=== PATIENT | male | born 1965 ===

== ENCOUNTER 2018-07-19 19:49 | Inpatient (IN) ==
[2018-07-19 20:26] LABS: Basophils # 0.1 10*3/uL (0.0-0.2); Basophils % 1.4 % (0.0-0.8); Eosinophils # 0.2 10*3/uL (0.0-0.87); Eosinophils % 2.4 % (0.00-10.9); Hematocrit 32.2 VOL% (42.0-52.0); Hemoglobin 10.8 GM/DL (14.0-18.0); Immature Granulocytes % 0.5 %; Immature Granulocytes Absolute 0.03 #; Lymphocytes # 1.8 10*3/uL (1.4-4.0); Lymphocytes % 26.9 % (21.2-54.2); Mean Corpuscular HGB Conc 33.5 GM/DL (32-36); Mean Corpuscular Hemoglobin 31 PG (27-34); Mean Corpuscular Volume 93.3 FL (87-102); Monocytes # 0.6 10*3/uL (0.11-0.8); Monocytes % 8.3 % (1.7-12.7); Neutrophils % 60.5 % (38.7-73.9); Platelet Count 190 T/CUMM (130-400); Red Blood Count 3.45 MC/CUMM (3.8-5.5); Red Cell Distribution Width 16.3 % (9.3-17.3); White Blood Count 6.6 T/CUMM (4-12)
[2018-07-19 20:40] LABS: INR 1.1
[2018-07-19 21:00] LABS: Apearance,Urine CLEAR (Clear); Bilirubin,Urine Negative (Negative); Blood, Urine Negative (Negative); Glucose,Urine (UA) >=500 mg/dL (Negative); Ketones,Urine Negative (Negative); Nitrite,Urine Negative (Negative); Protein,Urine Negative; Squamous Epithelial Cell,Urine Occasional /HPF (0-10); Urine Color Colorless (Yellow); Urine Specific Gravity 1.002 (1.001-1.035); Urine Urobilinogen < 2.0 EU/DL (0.2-1.0)
[2018-07-19 21:05] LABS: Albumin 2.4 G/DL (3.4-5.0); Bilirubin,Total 0.4 MG/DL (0.2-1.0); Calcium 7.2 MG/DL (8.5-10.1); Osmolality,Calculated 279.4 MOS/KG (273-304); Potassium 3.7 MMOL/L (3.5-5.1)
[2018-07-19] MEDS ORDERED: traZODone 50 MG TABLET PO PRN (22:23)
[2018-07-19] MEDS ORDERED: DEXTROSE 50% 25 GM/50 ML VIAL IV PRN (22:23)
[2018-07-19] MEDS ORDERED: ACETAMINOPHEN 325 MG TABLET PO PRN (22:23)
[2018-07-19] MEDS ORDERED: GLUCAGON 1 MG VIAL IM PRN (22:23)
[2018-07-19] MEDS ORDERED: ONDANSETRON 4 MG/2 ML VIAL IV PRN (22:23)
[2018-07-19] MEDS ORDERED: LORazepam 2 MG/1 ML VIAL IV PRN (22:37)
[2018-07-20] MEDS: CLINDAMYCIN INJ 600 MG in PREMIX 1 EACH IV SCH ×4 (00:08→23:38)
[2018-07-20] MEDS: SODIUM CHLORIDE 0.9% 1,000 ML IV SCH ×3 (00:09→18:30)
[2018-07-20] MEDS: ENOXAPARIN 40 MG/0.4 ML SYRINGE SUBCUT SCH ×2 (00:09→23:38)
[2018-07-20] MEDS ORDERED: LORazepam 2 MG/1 ML VIAL IV PRN (00:47)
[2018-07-20] MEDS: THIAMINE INJ 100 MG, FOLIC ACID INJ 1 MG, MULTIVITAMIN INJ 10 ML in SODIUM CHLORIDE 0.9... IV SCH (02:00)
[2018-07-20 05:07] LABS: Basophils % 0.8 % (0.0-0.8); Eosinophils # 0.1 10*3/uL (0.0-0.87); Eosinophils % 3.3 % (0.00-10.9); Hematocrit 32.2 VOL% (42.0-52.0); Hemoglobin 10.7 GM/DL (14.0-18.0); Immature Granulocytes % 0.3 %; Immature Granulocytes Absolute 0.01 #; Lymphocytes # 1.4 10*3/uL (1.4-4.0); Lymphocytes % 37.7 % (21.2-54.2); Mean Corpuscular HGB Conc 33.2 GM/DL (32-36); Mean Corpuscular Hemoglobin 31 PG (27-34); Mean Corpuscular Volume 92.3 FL (87-102); Mean Platelet Volume 10.3 FL (9.6-12.0); Monocytes # 0.3 10*3/uL (0.11-0.8); Monocytes % 7.3 % (1.7-12.7); NRBC # 0.02 10*3/uL; Neutrophils # 1.9 10*3/uL (1.4-7.4); Neutrophils % 50.6 % (38.7-73.9); Platelet Count 154 T/CUMM (130-400); Red Blood Count 3.49 MC/CUMM (3.8-5.5); Red Cell Distribution Width 16.5 % (9.3-17.3); White Blood Count 3.7 T/CUMM (4-12)
[2018-07-20 05:33] LABS: Calcium 7.3 MG/DL (8.5-10.1); Potassium 3.7 MMOL/L (3.5-5.1); Risk Ratio 2.58; VLDL CHOLESTEROL 23.8 MG/DL
[2018-07-20] MEDS: INSULIN LISPRO 100 UNIT/ML SUBCUT SCH ×4 (08:14→21:06)
[2018-07-20] MEDS: chlordiazePOXIDE 10 MG CAPSULE PO SCH ×3 (08:58→21:06)
[2018-07-20] MEDS: PANTOPRAZOLE 40 MG TABLET PO SCH (08:58)
[2018-07-21] MEDS: THIAMINE INJ 100 MG, FOLIC ACID INJ 1 MG, MULTIVITAMIN INJ 10 ML in SODIUM CHLORIDE 0.9... IV SCH (01:40)
[2018-07-21] MEDS: CLINDAMYCIN INJ 600 MG in PREMIX 1 EACH IV SCH ×3 (06:30→23:10)
[2018-07-21] MEDS: INSULIN LISPRO 100 UNIT/ML SUBCUT SCH ×4 (07:31→20:59)
[2018-07-21] MEDS: PANTOPRAZOLE 40 MG TABLET PO SCH (08:55)
[2018-07-21] MEDS: chlordiazePOXIDE 10 MG CAPSULE PO SCH ×3 (08:55→20:57)
[2018-07-21] MEDS ORDERED: FUROSEMIDE 40 MG/4 ML VIAL IV SCH (09:00)
[2018-07-21] MEDS: SODIUM CHLORIDE 0.9% 1,000 ML IV SCH ×3 (12:52→23:10)
[2018-07-21] MEDS: MUPIROCIN 2% OINT 22 GM TUBE TOP PRN (17:30)
[2018-07-21] MEDS: SKIN HEALING OINT (AQUAPHOR) 50 GM TUBE TOP PRN (17:30)
[2018-07-21] MEDS: FUROSEMIDE 40 MG/4 ML VIAL IV SCH (17:56)
[2018-07-21] MEDS ORDERED: THIAMINE 100 MG TABLET PO SCH (21:00)
[2018-07-21] MEDS: ENOXAPARIN 40 MG/0.4 ML SYRINGE SUBCUT SCH (23:10)
[2018-07-22] MEDS: SODIUM CHLORIDE 0.9% 1,000 ML IV SCH ×3 (02:29→22:29)
[2018-07-22 04:21] LABS: Basophils % 0.5 % (0.0-0.8); Eosinophils # 0.2 10*3/uL (0.0-0.87); Eosinophils % 2.3 % (0.00-10.9); Hematocrit 31.7 VOL% (42.0-52.0); Immature Granulocytes % 0.8 %; Immature Granulocytes Absolute 0.07 #; Lymphocytes # 1.2 10*3/uL (1.4-4.0); Lymphocytes % 14.8 % (21.2-54.2); Mean Corpuscular HGB Conc 34.7 GM/DL (32-36); Mean Corpuscular Hemoglobin 32 PG (27-34); Mean Corpuscular Volume 91.1 FL (87-102); Mean Platelet Volume 10.5 FL (9.6-12.0); Monocytes # 0.6 10*3/uL (0.11-0.8); Monocytes % 6.7 % (1.7-12.7); Neutrophils # 6.2 10*3/uL (1.4-7.4); Neutrophils % 74.9 % (38.7-73.9); Platelet Count 115 T/CUMM (130-400); Red Blood Count 3.48 MC/CUMM (3.8-5.5); Red Cell Distribution Width 16.6 % (9.3-17.3); White Blood Count 8.3 T/CUMM (4-12)
[2018-07-22 04:41] LABS: Calcium 7.5 MG/DL (8.5-10.1); Osmolality,Calculated 270.8 MOS/KG (273-304)
[2018-07-22 04:56] LABS: Folate 13.1 NG/ML (5.4-24.0); Vitamin B12 458 PG/ML (211-911)
[2018-07-22 05:53] LABS: Sedimentation Rate-Westergren 110 MM/HR (0-20)
[2018-07-22] MEDS: CLINDAMYCIN INJ 600 MG in PREMIX 1 EACH IV SCH ×3 (06:11→22:30)
[2018-07-22] MEDS: INSULIN LISPRO 100 UNIT/ML SUBCUT SCH ×4 (07:26→20:18)
[2018-07-22] MEDS: FUROSEMIDE 40 MG/4 ML VIAL IV SCH (08:38)
[2018-07-22] MEDS: PANTOPRAZOLE 40 MG TABLET PO SCH (08:38)
[2018-07-22] MEDS: chlordiazePOXIDE 10 MG CAPSULE PO SCH ×3 (08:38→20:18)
[2018-07-22] MEDS: MULTIVITAMIN (BEROCCA) TABLET PO SCH (08:38)
[2018-07-22] MEDS: THIAMINE 100 MG TABLET PO SCH (08:38)
[2018-07-22] MEDS: MUPIROCIN 2% OINT 22 GM TUBE TOP PRN (09:00)
[2018-07-22] MEDS: SKIN HEALING OINT (AQUAPHOR) 50 GM TUBE TOP PRN (09:00)
[2018-07-22 10:22] LABS: Hemoglobin A1 (Alkaline) 98.1 % (96.5-98.5); Hemoglobin A2 (Alkaline) 1.9 % (1.5-3.5)
[2018-07-22] MEDS ORDERED: MAGNESIUM SULF RIDER 2 GM in PREMIX 1 EACH IV ONE (10:48)
[2018-07-22] MEDS: POTASSIUM CHLORIDE 20 MEQ TABLET PO PRN ×4 (12:12→20:18)
[2018-07-22] MEDS: ENOXAPARIN 40 MG/0.4 ML SYRINGE SUBCUT SCH (22:29)
[2018-07-23] MEDS: POTASSIUM CHLORIDE 20 MEQ TABLET PO PRN (03:30)
[2018-07-23] MEDS: INSULIN LISPRO 100 UNIT/ML SUBCUT SCH ×4 (06:43→20:38)
[2018-07-23] MEDS: MULTIVITAMIN (BEROCCA) TABLET PO SCH (08:58)
[2018-07-23] MEDS: THIAMINE 100 MG TABLET PO SCH (08:59)
[2018-07-23] MEDS: PANTOPRAZOLE 40 MG TABLET PO SCH (08:59)
[2018-07-23] MEDS: FUROSEMIDE 40 MG/4 ML VIAL IV SCH (08:59)
[2018-07-23] MEDS: chlordiazePOXIDE 10 MG CAPSULE PO SCH ×3 (08:59→20:38)
[2018-07-23] MEDS: SODIUM CHLORIDE 0.9% 1,000 ML IV SCH ×3 (09:22→20:39)
[2018-07-23] MEDS: CLINDAMYCIN INJ 600 MG in PREMIX 1 EACH IV SCH ×3 (10:07→23:11)
[2018-07-23] MEDS: ENOXAPARIN 40 MG/0.4 ML SYRINGE SUBCUT SCH (23:11)
[2018-07-24] MEDS: CLINDAMYCIN INJ 600 MG in PREMIX 1 EACH IV SCH ×2 (06:44→15:14)
[2018-07-24] MEDS: INSULIN LISPRO 100 UNIT/ML SUBCUT SCH ×4 (07:20→21:33)
[2018-07-24] MEDS: SODIUM CHLORIDE 0.9% 1,000 ML IV SCH ×4 (08:14→22:18)
[2018-07-24] MEDS: MULTIVITAMIN (BEROCCA) TABLET PO SCH (11:32)
[2018-07-24] MEDS: FUROSEMIDE 40 MG/4 ML VIAL IV SCH (11:32)
[2018-07-24] MEDS: THIAMINE 100 MG TABLET PO SCH (11:33)
[2018-07-24] MEDS: PANTOPRAZOLE 40 MG TABLET PO SCH (11:33)
[2018-07-24] MEDS: chlordiazePOXIDE 10 MG CAPSULE PO SCH ×3 (11:33→21:32)
[2018-07-24] MEDS: SKIN HEALING OINT (AQUAPHOR) 50 GM TUBE TOP PRN (18:30)
[2018-07-24] MEDS: MUPIROCIN 2% OINT 22 GM TUBE TOP PRN (18:30)
[2018-07-24] MEDS: ENOXAPARIN 40 MG/0.4 ML SYRINGE SUBCUT SCH (21:32)
[2018-07-25] MEDS: CLINDAMYCIN INJ 600 MG in PREMIX 1 EACH IV SCH ×4 (00:42→23:30)
[2018-07-25 05:48] LABS: Basophils % 0.7 % (0.0-0.8); Eosinophils # 0.3 10*3/uL (0.0-0.87); Eosinophils % 6.8 % (0.00-10.9); Hemoglobin 11.1 GM/DL (14.0-18.0); Immature Granulocytes % 0.5 %; Immature Granulocytes Absolute 0.02 #; Lymphocytes # 1.2 10*3/uL (1.4-4.0); Lymphocytes % 27.8 % (21.2-54.2); Mean Corpuscular HGB Conc 33.6 GM/DL (32-36); Mean Corpuscular Hemoglobin 31 PG (27-34); Mean Corpuscular Volume 91.2 FL (87-102); Mean Platelet Volume 10.4 FL (9.6-12.0); Monocytes # 0.5 10*3/uL (0.11-0.8); Neutrophils # 2.3 10*3/uL (1.4-7.4); Neutrophils % 52.2 % (38.7-73.9); Platelet Count 131 T/CUMM (130-400); Red Blood Count 3.62 MC/CUMM (3.8-5.5); Red Cell Distribution Width 16.5 % (9.3-17.3); White Blood Count 4.4 T/CUMM (4-12)
[2018-07-25 06:04] LABS: Calcium 7.7 MG/DL (8.5-10.1); Osmolality,Calculated 272.8 MOS/KG (273-304); Potassium 3.7 MMOL/L (3.5-5.1)
[2018-07-25] MEDS: SODIUM CHLORIDE 0.9% 1,000 ML IV SCH ×2 (09:18→19:25)
[2018-07-25] MEDS: INSULIN LISPRO 100 UNIT/ML SUBCUT SCH ×4 (09:56→20:34)
[2018-07-25] MEDS: chlordiazePOXIDE 10 MG CAPSULE PO SCH ×3 (09:57→20:35)
[2018-07-25] MEDS: MULTIVITAMIN (BEROCCA) TABLET PO SCH (09:57)
[2018-07-25] MEDS: FUROSEMIDE 40 MG/4 ML VIAL IV SCH (09:57)
[2018-07-25] MEDS: THIAMINE 100 MG TABLET PO SCH (09:57)
[2018-07-25] MEDS: PANTOPRAZOLE 40 MG TABLET PO SCH (09:57)
[2018-07-25] MEDS: ENOXAPARIN 40 MG/0.4 ML SYRINGE SUBCUT SCH (23:30)
[2018-07-26] MEDS: SODIUM CHLORIDE 0.9% 1,000 ML IV SCH ×2 (05:31→18:19)
[2018-07-26] MEDS: CLINDAMYCIN INJ 600 MG in PREMIX 1 EACH IV SCH ×2 (06:01→16:20)
[2018-07-26] MEDS: INSULIN LISPRO 100 UNIT/ML SUBCUT SCH ×4 (07:33→21:11)
[2018-07-26] MEDS: MULTIVITAMIN (BEROCCA) TABLET PO SCH (09:40)
[2018-07-26] MEDS: FUROSEMIDE 40 MG/4 ML VIAL IV SCH (09:40)
[2018-07-26] MEDS: THIAMINE 100 MG TABLET PO SCH (09:41)
[2018-07-26] MEDS: chlordiazePOXIDE 10 MG CAPSULE PO SCH ×3 (09:41→21:11)
[2018-07-26] MEDS: PANTOPRAZOLE 40 MG TABLET PO SCH (09:41)
[2018-07-26 15:56] VITALS: BP 159/74
== END 2018-07-26 18:19 | disposition home or self-care (01) | DRG 603 ==
LOC: EDUNIT# → EDBD → N.ED 19:49 → SUATTDRO 22:23 → N.EDINP 22:23 → N.3E 23:00
PROVIDERS: ADMIT Internal Medicine; ATTEND Hospitalist

== ENCOUNTER 2018-07-29 22:24 | Observation (INO) ==
[2018-07-30 00:12] LABS: Basophils # 0.1 10*3/uL (0.0-0.2); Basophils % 0.9 % (0.0-0.8); Eosinophils # 0.4 10*3/uL (0.0-0.87); Eosinophils % 5.4 % (0.00-10.9); Hematocrit 33.7 VOL% (42.0-52.0); Hemoglobin 11.3 GM/DL (14.0-18.0); Immature Granulocytes % 0.5 %; Immature Granulocytes Absolute 0.03 #; Lymphocytes # 2.5 10*3/uL (1.4-4.0); Lymphocytes % 38.1 % (21.2-54.2); Mean Corpuscular HGB Conc 33.5 GM/DL (32-36); Mean Corpuscular Hemoglobin 31 PG (27-34); Mean Corpuscular Volume 93.4 FL (87-102); Mean Platelet Volume 10.3 FL (9.6-12.0); Monocytes # 0.7 10*3/uL (0.11-0.8); Monocytes % 10.4 % (1.7-12.7); Neutrophils # 2.9 10*3/uL (1.4-7.4); Neutrophils % 44.7 % (38.7-73.9); Platelet Count 153 T/CUMM (130-400); Red Blood Count 3.61 MC/CUMM (3.8-5.5); Red Cell Distribution Width 16.4 % (9.3-17.3); White Blood Count 6.5 T/CUMM (4-12)
[2018-07-30 00:38] LABS: Alanine Aminotransferase 55 U/L (16-61); Albumin 2.5 G/DL (3.4-5.0); Alkaline Phosphatase 140 U/L (45-117); Aspartate Amino Transferase 74 U/L (0-37); Blood Urea Nitrogen 10 MG/DL (7-18); Calcium 7.8 MG/DL (8.5-10.1); Glucose 145 MG/DL (74-106); Osmolality,Calculated 284.1 MOS/KG (273-304); Potassium 3.7 MMOL/L (3.5-5.1); Sodium 142 MMOL/L (136-145); Total Protein 9.1 G/DL (6.4-8.3); Troponin I < 0.015 NG/ML (0.00-0.045)
[2018-07-30] MEDS ORDERED: ONDANSETRON 4 MG/2 ML VIAL IV PRN (06:47)
[2018-07-30] MEDS ORDERED: ACETAMINOPHEN 325 MG TABLET PO PRN (06:47)
[2018-07-30] MEDS ORDERED: LORazepam 2 MG/1 ML VIAL IV PRN (06:47)
[2018-07-30] MEDS ORDERED: SODIUM CHLORIDE 0.9% 1,000 ML IV SCH (06:47)
[2018-07-30] MEDS ORDERED: THIAMINE INJ 100 MG, FOLIC ACID INJ 1 MG, MULTIVITAMIN INJ 10 ML in SODIUM CHLORIDE 0.9... IV SCH (08:00)
[2018-07-30] MEDS ORDERED: ENOXAPARIN 40 MG/0.4 ML SYRINGE SUBCUT SCH (08:00)
[2018-07-30] MEDS: chlordiazePOXIDE 10 MG CAPSULE PO SCH ×2 (08:48→14:55)
[2018-07-30] MEDS ORDERED: PANTOPRAZOLE 40 MG TABLET PO SCH (09:00)
[2018-07-30] MEDS ORDERED: FOLIC ACID INJ 1 MG in SYRINGE 1 EACH IV SCH (09:00)
[2018-07-30] MEDS ORDERED: THIAMINE 200 MG/2 ML VIAL IV SCH (09:00)
[2018-07-30 09:19] LABS: Folate 5.1 NG/ML (5.4-24.0)
[2018-07-30 17:04] VITALS: BP 155/79
== END 2018-07-30 17:52 | disposition home or self-care (01) ==
LOC: EDUNIT# → EDBD → N.ED 22:24 → N.EDINP 22:24 → N.3E 07-30 04:38
PROVIDERS: ADMIT Internal Medicine; ATTEND Internal Medicine